=== PATIENT | male | born 1985 | race Caucasian/White ===

== ENCOUNTER 2024-09-29 01:03 | Outpatient (CLI) | payer OTHER, SELFPAY ==
--- NOTE | 2024-09-29 13:31 | DI.RAD_ITS ---
Exam(s) XR CHEST 2V PA LATERAL EXAM: XR CHEST 2V PA LATERAL CLINICAL HISTORY: VES#[id number], SHORTNESS OF BREATH, R06.02 TECHNIQUE: 2D digital imaging was performed. Two views. COMPARISON: No exams were available for comparison FINDINGS: HEART: Normal size. Aorta: Not dilated. PULMONARY VASCULATURE: Normal. MEDIASTINUM: Unremarkable. LUNGS: Clear. PLEURAL SPACE: No pleural effusion or pneumothorax. BONE:Unremarkable for age. SOFT TISSUES: Unremarkable. IMPRESSION: No acute abnormality. DATA REPOSITORY: RADIATION DOSE DELIVERED:
[2024-09-29] MEDS: Inhaler, Assist Device 1 EACH MC (13:48)
[2024-09-29] MEDS: Levalbuterol HFA 15 GM INH 4 PUFF IH (13:48)
--- NOTE | 2024-10-08 16:06 | W.PFT ---
Date of service: 09/29/24 Time of Service: 12:53 Pulmonary Function Test Result Indications: Disability Interpretation Spirometry: There is no airflow limitation. No significant bronchodilator response. Impression Normal spirometry Clinical Correlation therefore is recommended.
== END 2024-09-29 01:04 | disposition home or self-care (01) ==
LOC: RT 01:03
PROVIDERS: PCP Nurse Practitioner Family; Visit Provider Student in an Organized Health Care Education/Training Program
DX: R06.02 Shortness of breath (principal)
CPT/HCPCS: 94060; 71046